=== PATIENT | male | born 1955 | race Caucasian/White ===

== ENCOUNTER 2018-10-31 18:10 | Emergency (ER) | payer OTHER ==
[2018-10-31 18:17] VITALS: BP 168/91
--- NOTE | 2018-10-31 18:31 | EDPHY ---
H & P Stated Complaint: infection r foot cracked callus Time Seen by Provider: 10/31/18 18:20 HPI/ROS: Chief Complaint: Right foot cellulitis HPI: The patient presents to the ED for check of right foot cellulitis. He developed some mild erythema to the dorsum of his right foot. He was started on Keflex which he took 500 mg 3 times a day yesterday. The patient was concerned that his erythema did not improve which prompted his visit to the ER today. The patient has I significant pain. He denies any progression of his erythema. He denies additional complaints. REVIEW OF SYSTEMS: Neuro: no headache, numbness, weakness Musculoskeletal: as above Skin: As above Source: Patient - Personal History Current Tetanus Diphtheria and Acellular Pertussis (TDAP): Yes Tetanus Vaccine Date: 2011 - Medical/Surgical History Hx Asthma: No Hx Chronic Respiratory Disease: No Hx Diabetes: No Hx Cardiac Disease: Yes Hx Renal Disease: No Hx Cirrhosis: No Hx Alcoholism: No Hx HIV/AIDS: No Hx Splenectomy or Spleen Trauma: No Other PMH: afib- metoprolol. - Social History Smoking Status: Never smoked - Physical Exam Exam: Right foot Skin: Mild erythema noted to the dorsum of the right foot Musculoskeletal: No clinical evidence of a 1st MTP arthropathy. Neuro: Sensation intact to light touch Constitutional: Initial Vital Signs Temperature (C) 36.7 C 10/31/18 18:14 Heart Rate 79 10/31/18 18:14 Respiratory Rate 17 10/31/18 18:14 Blood Pressure 168/91 H 10/31/18 18:14 O2 Sat (%) 96 10/31/18 18:14 O2 Delivery Mode Room Air Allergies/Adverse Reactions: codeine Allergy (Intermediate, Verified 10/31/18 18:11) Rash Sulfa (Sulfonamide Antibiotics) Allergy (Intermediate, Verified 10/31/18 18:11) Rash Home Medications: Medication Instructions Recorded CEPHALEXIN 10/31/18 Medical Decision Making ED Course/Re-evaluation: Patient has a mild cellulitis to his right foot. He has only been on antibiotics for a total of 3 doses. I would not characterize this is a treatment failure. I have asked the patient to begin taking Keflex 4 times a day for the next 7 days. He is discharged home with customary aftercare instructions and return precautions. Differential Diagnosis: Differential diagnosis considered includes cellulitis, abscess, gout Departure - Departure Disposition: Home, Routine, Self-Care Clinical Impression: Cellulitis of right foot Condition: Good Instructions: Cellulitis (ED) Additional Instructions: 1. Take Keflex 1 tablet 4 times a day for the next week. 2. Please return to the ED for markedly worsening symptoms of progressive erythema, increasing pain, high fever or other concerns. 3. Recheck with your primary care provider within the next week. 4. Please elevate extremity as much as possible. Limit activity until infection has improved. Referrals: SHANNON VALDES [Primary Care Provider] - As per Instructions
== END 2018-10-31 18:38 | disposition home or self-care (01) ==
DX: L03.115 Cellulitis of right lower limb (principal)

== ENCOUNTER → 2019-02-18 | Outpatient (CLI) | payer OTHER | LOC: FIMAGING 09:56 ==